=== PATIENT | male | born 1955 | race Caucasian/White ===

== ENCOUNTER 2019-11-17 09:12 | Emergency (ER) | payer BC, SELFPAY ==
--- NOTE | ~2019-11-17 | XR_ITS ---
EXAMINATION: XR finger 2nd LT min 2V INDICATION: Left second finger pain TECHNIQUE: Three views of the left second finger are obtained. COMPARISON: None available FINDINGS: There is no fracture, dislocation, or subluxation. The bones, soft tissues, and joint space s are normal. IMPRESSION: 1. No acute osseous abnormality. Reviewed, dictated and finalized at location A.
[2019-11-17 09:21] VITALS: BP 140/78; PULSE 60; RESP 20; TEMP 37.1; O2SAT 99
--- NOTE | 2019-11-17 09:25 | ED.UPPEXIN ---
HPI - Extremity Injury (Upper) General Chief Complaint: Extremity Injury, Upper Stated Complaint: left pointer finger pain Time Seen by Provider: 11/17/19 09:25 Source: patient and RN notes reviewed History of Present Illness HPI narrative: Patient is a 63-year-old male who presents the urgent care with complaints of left index finger staff and achiness. Patient states it is been ongoing for approximately 2 weeks. Patient states that he has been doing a lot of tiling and woodworking and does have a history of arthritis. Patient is right-handed. Denies of any recent trauma or injury to the finger. However, patient states 2 months ago he hit the MCP joint of the left index finger, with a hammer. Denies of any fever, chills, nausea, vomiting. No other acute complaints. No acute distress noted. Patient read the plan of care. Related Data Home Medications Medication Instructions Recorded Confirmed ascorbic acid (vitamin C) 500 mg PO DAILY 11/17/19 11/17/19 cinnamon bark [Cinnamon] 1,000 mg PO DAILY 11/17/19 11/17/19 cyanocobalamin (vitamin B-12) 500 mcg PO DAILY 11/17/19 11/17/19 [Vitamin B-12] ezetimibe 10 mg PO DAILY 11/17/19 11/17/19 lisinopril 20 mg PO DAILY 11/17/19 11/17/19 metformin 1,000 mg PO BID 11/17/19 11/17/19 niacin 500 mg PO DAILY 11/17/19 11/17/19 Allergies Allergy/AdvReac Type Severity Reaction Status Date / Time No Known Allergies Allergy Verified 11/17/19 09:35 Review of Systems Review of Systems: Narrative: CONSTITUTIONAL: Denies fever, chills, or sweats. EYES: Denies visual changes, redness, or discharge. ENT: Denies rhinorrhea, congestion, sore throat, or otalgia. CARDIOVASCULAR: Denies chest pain, palpitations, or edema. RESPIRATORY: Denies cough or dyspnea. GASTROINTESTINAL: Denies abdominal pain, nausea, vomiting, or diarrhea. GENITOURINARY: Denies dysuria or hematuria. SKIN: Denies rash or itching. MUSCULOSKELETAL: Reports of left index finger stiffness and achiness NEUROLOGIC: Denies headache, numbness, or weakness. All other systems reviewed are negative, except as documented in HPI. PMFSH Comments At the time of my signature, I reviewed and agree with the nursing past medical, surgical, social, and family history. There is no relevant family history pertinent to the patient complaint. Exam Narrative: Exam Narrative: GENERAL: This is a well-nourished, well-developed patient, in no apparent distress. HEAD: normocephalic, atraumatic. EYES: PERRL. Sclera clear/white. Vision is grossly intact. EARS: External ears normal NOSE: External nose normal with no obvious nasal discharge, nares without redness, no rhinorrhea. THROAT: Mucous membranes moist NECK: Neck supple SKIN: warm, intact with no suspicious lesions or rash, good texture and turgor. NEURO: awake, alert, and oriented to person, place and time. There were no obvious focal neurologic abnormalities. EXTREMITIES: Mild tenderness to the PIP of the left index finger with flexion-no notable erythema, edema, deformity or injury. Capillary refill less than 2 seconds to left upper extremity with positive strong radial pulse Course Vital Signs Vital signs: Vital Signs Temperature 98.7 F 11/17/19 09:21 Pulse Rate 60 11/17/19 09:21 Respiratory Rate 20 11/17/19 09:21 Blood Pressure 140/78 11/17/19 09:21 Pulse Oximetry 99 11/17/19 09:21 Temperature 98.7 F 11/17/19 09:21 Pulse Rate 60 11/17/19 09:21 Respiratory Rate 20 11/17/19 09:21 Blood Pressure 140/78 11/17/19 09:21 Pulse Oximetry 99 11/17/19 09:21 Reviewed MDM - Extremity Injury (Upper) MDM Narrative Medical decision making narrative: Reviewed x-ray results with the patient. Patient is aware that x-ray was normal without any bone abnormality/fracture. Suggested that the patient could try a steroid for arthritic pain, and he opts out of that decision for now. Advised the patient to use Tylenol arthritis or ibuprofen [id number] as needed.
--- NOTE | 2019-11-17 09:58 | PC.NURSE ---
PT DECLINED ICE FOR COMFORT
== END 2019-11-17 10:05 | disposition home or self-care (01) ==
PROVIDERS: Emergency Provider Nurse Practitioner Family; PCP Family Medicine
DX: M19.042 Primary osteoarthritis, left hand (principal)
CPT/HCPCS: 73140; 99203; G0463